=== PATIENT | female | born 1990 | race Caucasian/White ===

== ENCOUNTER 2019-09-15 23:12 | Emergency (ER) | payer OTHER ==
[~2019-09-15] VITALS: Ht 162.6 cm; Wt 73.0 kg
[2019-09-16 01:32] VITALS: BP 138/88
== END 2019-09-16 01:32 | disposition home or self-care (01) ==
LOC: ED 23:12
DX: J11.1 Influenza due to unidentified influenza virus with other respiratory manifestations (principal)
CPT/HCPCS: 87804; J7512